=== PATIENT | female | born 1980 | race African-American/Black ===

== ENCOUNTER 2016-06-02 14:04 | Emergency (ER) | payer OTHER ==
[~2016-06-02 14:04] MED LIST: ADVAIR INH; ALBUTEROL17 GM INH; BACTRIM DS TABL1 TA1 PO; BENZONATATE PO; CHOLESTEROL MED; CIPRO PO; EC-NAPROSYN500 MG PO; FLEXERIL10 MG PO; FLOXIN10 ML AD; GLUCOPHAGE500 MG PO; GLUCOTROL; IBUPROFEN PO; IBUPROFEN800 MG PO; LEVAQUIN PO; METFORMIN HCL1000 M1 PO; METFORMIN PO; NAPROXEN PO; ONDANSETRON HCL4 MG PO; ONDANSETRON ODT4 MG DOB; ORUDIS75 M1 PO; PHENERGAN25 M1 PO; PHENERGAN25 MG PO; ROBITUSSIN A-C10 ML PO; VICODIN 5/500 T1 TAB PO; VICODIN PO; ZOFRAN ODT4 MG PO; ZOFRAN PO; ZOFRANODT PO
[2016-06-02 14:51] LABS: URINE SOURCE CLEAN CATCH
[2016-06-02 14:54] LABS: URINE APPEARANCE CLEAR; URINE BILIRUBIN NEG (NEG); URINE BLOOD TRACE-INTACT (NEG); URINE COLOR YELLOW; URINE GLUCOSE 300 MG/DL (NORM); URINE KETONE NEG (NEG); URINE LEUKOCYTE ESTERASE NEG (NEG); URINE NITRATE NEG (NEG); URINE PROTEIN NEG (NEG); URINE UROBILINOGEN 0.2 MG/DL (NORM)
[2016-06-02 14:55] LABS: MICRO INDICATED? YES
[2016-06-02 15:04] LABS: URINE RBC 0-2 /[HPF] (0-2)
[2016-06-02 15:05] LABS: CULTURE INDICATED? NO; URINE BACTERIA NEG (NEG); URINE WBC 0-2 /[HPF] (0-5)
[2016-06-02 15:47] LABS: ALBUMIN SERUM 3.8 g/dL (3.5-5.0); ALKALINE PHOSPHATASE 83 U/L (32-92); ALT (SGPT) 14 U/L (10-40); AST (SGOT) 16 U/L (10-42); BILIRUBIN,TOTAL 0.3 mg/dL (0.2-2.0); BLOOD UREA NITROGEN 14 mg/dL (9-23); BUN/CREATININE RATIO 23.33; CALCIUM SERUM 9.2 mg/dL (8.4-10.2); CARBON DIOXIDE 26 mmol/L (22-31); CHLORIDE 101 mmol/L (100-111); CREATININE SERUM 0.6 mg/dL (0.6-1.4); GLUCOSE FASTING 350 mg/dL (70-110); LIPASE 30 U/L (22-51); POTASSIUM 4.2 mmol/L (3.5-5.1); PROTEIN TOTAL SERUM 7.5 g/dL (6.0-8.3); SODIUM 132 mmol/L (135-145)
[2016-06-02 15:57] LABS: BASOPHIL% 0.3 % (0-2.5); BILIRUBIN, DIRECT <0.1 mg/dL (0.0-0.2); BILIRUBIN,INDIRECT 0.2 mg/dL (0.0-0.9); EOSINOPHIL# 0.2 X10e3 (0-0.7); EOSINOPHIL% 4.7 % (0.0-7.0); HEMATOCRIT 39.7 % (35.0-45.0); LYMPHOCYTE# 1.7 X10e3 (1.0-3.5); LYMPHOCYTE% 40.3 % (17.0-45.0); MEAN CELL VOLUME 82.3 FL (83-96); MEAN CORPUSCULAR HGB CONC 32.8 g/dL (30-36); MEAN PLATELET VOLUME 9.1 FL (6.5-11.5); MONOCYTE# 0.3 X10e3 (0-1.0); MONOCYTE% 8.1 % (3.0-12.0); NEUTROPHIL% 46.6 % (40-75); PLATELET COUNT 327 X10e3 (140-420); RED BLOOD COUNT 4.82 X10e (3.90-5.30); WHITE BLOOD COUNT 4.3 X10e3 (4.0-10.5)
[2016-06-02 16:07] LABS: DIFF IND YES
[2016-06-02 16:40] LABS: PLATELET ESTIMATE NORMAL (NORMAL)
[2016-06-02 16:41] LABS: RBC NORMAL YES
== END 2016-06-02 17:32 | disposition home or self-care (01) ==
LOC: SED 14:04
PROVIDERS: Emergency Medicine
DX: K29.00 Acute gastritis without bleeding (principal); E11.65 Type 2 diabetes mellitus with hyperglycemia; Z79.899 Other long term (current) drug therapy
CPT/HCPCS: 36415; 80048; 80076; 81003; 83690; 84703; 85025; 96361; 96374; 96375; 99284; J2405

== ENCOUNTER 2016-06-09 09:48 | Emergency (ER) | payer OTHER ==
--- NOTE | ~2016-06-09 | CT2 ---
[facility] A Service of [facility] RADIOLOGY TEXT RESULTS PATIENT: ALEXIS OJEDA LOCATION: SED : 76 UNIT #: [id number] AGE: [address]: Arron David MD SEX: F ORDER DR: [id number] [address] [address] [id number] MR#: [id number] Acc #: [id number] NAME: ALEXIS OJEDA : 1980 SEX: F STUDY DATE/TIME: 06/09/2016 UNIT: SED ROOM: STUDY DESCRIPTION: CT Abd and Pelv W Cont Attending Physician: Arron David M.D. Ordering Physician: Arron David M.D. Primary Care Physician: No Primary Care Physician MEDICAL IMAGING REPORT This report is preliminary unless electronic signature is present. EXAM CT abdomen and pelvis with contrast 06/09/2016 1128 hours HISTORY 35-year-old with right-sided abdominal pain for 1-1/2 weeks. Patient seen here last week for similar symptoms but did not follow up with primary care provider. COMPARISON Ultrasound gallbladder 07/20/[address] 04/30/2015. TECHNIQUE Helical postcontrast images were obtained from the lung bases through the pubic symphysis. Sagittal and coronal reconstructions were performed. Contrast was Isovue-370, 100 mL IV. Total exam DLP PA 936 mGy-cm. FINDINGS The lung bases are clear. The distal esophagus is normal. Images through the abdomen demonstrate very mild low attenuation of the liver which could indicate fatty change. There is no focal liver lesion. The spleen, pancreas, gallbladder, and bile ducts are normal. The adrenal glands are normal. The kidneys demonstrate a slight delay in imaging with excretion of contrast into nondilated renal collecting systems and ureters. There is no renal mass, cyst, or stone. No ureteral calculus is seen. The bladder is only moderately well distended. There is heterogeneity to the urine contents, which I believe is most likely related to mixing of contrast opacified and unopacified urine. This can also be seen in blood products, but the patient would be expected to have gross hematuria, which is not reported on history. [facility] A Service of [facility] RADIOLOGY TEXT RESULTS PATIENT: ALEXIS OJEDA [place] [facility] [place] UNIT #: [id number] AGE: [address]: Arron David MD SEX: F ORDER DR: The stomach and small bowel are normal. There is no evidence of appendicitis. There is no colonic distension or colonic wall thickening. CT pelvis demonstrates an anteverted uterus. The left ovary is mildly prominent in size with small rounded hyperdense areas measuring less than 1 cm, likely representing a hemorrhagic or proteinaceous cysts. There is no pelvic free fluid or abscess. IMPRESSION 1. No acute findings in the abdomen or pelvis. 2. No evidence of appendicitis. 3. There is excretion of contrast into the renal collecting systems and upper ureters. The contents of the bladder are heterogeneously increased in density likely representing mixing of contrast opacified and unopacified urine. Blood products in the bladder can have this appearance, but there is no reported hematuria. 4. Mildly prominent left ovary with very small rounded hyperdensity area is present. These are favored to represent small hemorrhagic cysts or proteinaceous cysts. Dictated by... Rachel Bradley M.D. THIS IS AN ELECTRONICALLY VERIFIED REPORT Rachel Bradley M.D. at 06/09/2016 2:30 PM Yaw TD: 06/09/2016 12:21 JOB #: [id number] MEDICAL IMAGING REPORT Page 1 of 1
[2016-06-09 10:26] LABS: URINE SOURCE CLEAN CATCH
[2016-06-09 10:28] LABS: URINE APPEARANCE CLEAR; URINE BILIRUBIN NEG (NEG); URINE BLOOD NEG (NEG); URINE COLOR YELLOW; URINE GLUCOSE 300 MG/DL (NORM); URINE KETONE TRACE (NEG); URINE LEUKOCYTE ESTERASE NEG (NEG); URINE NITRATE NEG (NEG); URINE PH 5.5 (5-8); URINE PROTEIN NEG (NEG); URINE SPECIFIC GRAVITY 1.015 (1.003-1.035); URINE UROBILINOGEN 0.2 MG/DL (NORM)
[2016-06-09 10:29] LABS: BASOPHIL% 1.1 % (0-2.5); EOSINOPHIL# 0.1 X10e3 (0-0.7); HEMATOCRIT 42.6 % (35.0-45.0); HEMOGLOBIN 13.5 gm/dL (12.0-16.0); LYMPHOCYTE# 1.2 X10e3 (1.0-3.5); LYMPHOCYTE% 29.4 % (17.0-45.0); MEAN CELL VOLUME 82.9 FL (83-96); MEAN CORPUSCULAR HEMOGLOBIN 26.3 PG (28-34); MEAN CORPUSCULAR HGB CONC 31.8 g/dL (30-36); MEAN PLATELET VOLUME 8.5 FL (6.5-11.5); MONOCYTE# 0.4 X10e3 (0-1.0); MONOCYTE% 9.5 % (3.0-12.0); NEUTROPHIL# 2.3 X10e3 (1.5-7.1); PLATELET COUNT 298 X10e3 (140-420); RED BLOOD COUNT 5.14 X10e (3.90-5.30)
[2016-06-09 10:30] LABS: DIFF IND NO
[2016-06-09 10:32] LABS: MICRO INDICATED? NO
[2016-06-09 10:51] LABS: ALBUMIN SERUM 3.7 g/dL (3.5-5.0); BILIRUBIN, DIRECT 0.1 mg/dL (0.0-0.2); BILIRUBIN,INDIRECT 0.4 mg/dL (0.0-0.9); BILIRUBIN,TOTAL 0.5 mg/dL (0.2-2.0); CALCIUM SERUM 8.7 mg/dL (8.4-10.2); CREATININE SERUM 0.6 mg/dL (0.6-1.4); POTASSIUM 3.9 mmol/L (3.5-5.1); PROTEIN TOTAL SERUM 7.3 g/dL (6.0-8.3)
== END 2016-06-09 12:34 | disposition home or self-care (01) ==
LOC: SED 09:48
PROVIDERS: Emergency Medicine
DX: E11.43 Type 2 diabetes mellitus with diabetic autonomic (poly)neuropathy (principal); K31.84 Gastroparesis; E11.65 Type 2 diabetes mellitus with hyperglycemia; G43.909 Migraine, unspecified, not intractable, without status migrainosus; Z79.84 Long term (current) use of oral hypoglycemic drugs; Z79.899 Other long term (current) drug therapy; Z88.8 Allergy status to other drugs, medicaments and biological substances
CPT/HCPCS: 36415; 74177; 80048; 80076; 81003; 83690; 84703; 85025; 96374; 96375; 99284; J2765; Q9967